=== PATIENT | male | born 1970 | race Caucasian/White ===

== ENCOUNTER 2016-09-08 18:21 | Emergency (ER) | payer OTHER ==
[2016-09-08 18:27] VITALS: BP 121/82; PULSE 105; TEMP 98.2; BMI 23.6
--- NOTE | 2016-09-08 19:43 | PDOC ---
History of Present Illness - General Chief Complaint: Rash Stated Complaint: LEG PAIN Time Seen by Provider: 09/08/16 19:20 History Source: Patient Exam Limitations: No Limitations - History of Present Illness Initial Comments: 09/08/16 19:37 My chief complaint: Blister and redness behind right knee History of present illness: Patient is a 46-year-old male with a history of chronic lower back pain here today to have area behind his right knee checked. Patient reports that the 2 days ago he was wearing a knee brace that was rubbing against the back of his right knee and created a blister. Patient has redness surrounding the blister and his mother thought he should come in to have it checked out to see if it was infectious. Patient denies any pain to the area. Patient denies any fever. Patient reports that the redness is not worse around blister. Is up-to-date with tetanus. Timing/Duration: changing over time Severity: mild Associated Symptoms: reports: denies symptoms Past History - Past Medical History Allergies/Adverse Reactions: Allergies Allergy/AdvReac Type Severity Reaction Status Date / Time cephalexin monohydrate Allergy Verified 09/08/16 18:24 [From [employer]] Home Medications: Ambulatory Orders Azithromycin [Zithromax Z-KARENA (5 DAYS) -] 250 mg PO ASDIR #6 tablet 06/02/13 Ondansetron [Zofran -] 4 mg PO BID PRN #10 tablet 06/02/13 Oseltamivir Phosphate [Tamiflu] 75 mg PO BID #10 capsule 06/02/13 Oxycodone HCl/Acetaminophen [Percocet 5-325 mg Tablet -] 1 tab PO Q4H PRN Psychiatric Problems: Yes (anxiety, insomnia) Other medical history: back pain - Psycho/Social/Smoking Cessation Hx Anxiety: No Suicidal Ideation: No Smoking History: Current every day smoker Have you smoked in the past 12 months: Yes Number of Cigarettes Smoked Daily: 20 Information on smoking cessation initiated: Yes 'Breaking Loose' booklet given: 09/08/16 Hx Alcohol Use: No Drug/Substance Use Hx: No Substance Use Type: None Review of Systems - Review of Systems Able to Perform ROS?: Yes Constitutional: No: Symptoms Reported HEENTM: No: Symptoms Reported Respiratory: No: Symptoms reported Cardiac (ROS): No: Symptoms Reported ABD/GI: No: Symptoms Reported : No: Symptoms Reported Musculoskeletal: No: Symptoms Reported Integumentary: Yes: Erythema (posterior rt. knee with broken blister dime size) Neurological: No: Symptoms reported *Physical Exam - Vital Signs Last Vital Signs Temp Pulse Resp BP Pulse Ox 98.2 F 105 H 18 121/82 100 09/08/16 18:25 09/08/16 18:25 09/08/16 18:25 09/08/16 18:25 09/08/16 18:25 - Physical Exam General Appearance: Yes: Appropriately Dressed Vascular Pulses: Dorsalis-Pedis (R): 4+ Integumentary: positive: Erythema (approx 6 cm x 5 cm area of erythema posterior rt. knee with broken blister in center dime size no tenderness ) Neurologic: positive: Alert, Normal Response, Respond to painful stimul (rt.leg) . negative: Numbness, Sensory Deficit (rt. leg) Procedures - Consent Consent obtained: Verbal, From Patient - Additional Procedures Progress: 09/08/16 19:47 Blister behind right knee cleansed with Betadine and normal saline 0.9%. Dried and bacitracin ointment applied Telfa and Tricia Medical Decision Making - Medical Decision Making 09/08/16 19:39 Patient is a 46-year-old male with a history of chronic lower back pain here today to have area behind his right knee checked. Patient reports that the 2 days ago he was wearing a knee brace that was rubbing against the back of his right knee and created a blister. Patient has redness surrounding the blister and his mother thought he should come in to have it checked out to see if it was infectious. Patient denies any fever. Patient reports that tetanus is up-to- date. blister and skin irritation behind rt. knee PLAN: surrounding skin cleansed with Betadine and normal saline 0.9% dried and tiny amount of bacitracin ointment applied with Telfa and Tricia Area does not look infectious more of an irritation with broken blister dime size *DC/Admit/Observation/Transfer Diagnosis at time of Disposition: Skin irritation, Blister - Discharge Dispostion Disposition: HOME Condition at time of disposition: Stable - Patient Instructions Additional Instructions: Cleanse area involved with antibacterial soap and water pat dry and apply a tiny amount of bacitracin ointment twice daily until healed Avoid wearing a knee brace Return to emergency room if any increase in redness of area or fever Follow-up with primary care provider within the next few days Patient voiced understanding of discharge instructions and all questions were answered
== END 2016-09-08 19:53 | disposition home or self-care (01) ==
LOC: JERFT 18:21
DX: S80.221A Blister (nonthermal), right knee, initial encounter (principal)
CPT/HCPCS: 99281-25

== ENCOUNTER 2018-07-26 08:45 | Inpatient (IN) | payer OTHER ==
[2018-07-26 09:12] VITALS: BMI 27.8
--- NOTE | 2018-07-26 10:21 | HP ---
COWS - Scale Resting Pulse: 0= [place] 80 or Below Sweatin= No chills or Flushing Restless Observation: 1= Difficult to Sit Still Pupil Size: 0= Normal to Room Light Bone or Joint Aches: 0= None Runny Nose/ Eye Tearin= Runny Nose/Eyes GI Upset > 30mins: 1= Stomach Cramp Tremor Observation: 1= Tremor [place], Not Seen Yawning Observation: 0= None Anxiety or Irritability: 2=Irritable/Anxious Goose Flesh Skin: 0=Smooth Skin COWS Score: 7 CIWA Score Nausea/Vomitin-No Nausea/No Vomiting Muscle Tremors: 1-None Visible, but [place] Anxiety: 4-Mod. Anxious/Guarded Agitation: 0-Normal Activity Paroxysmal Sweats: No Perspiration Orientation: 0-Oriented Tacttile Disturbances: 0-None Auditory Disturbances: 2-Mild Harshness/Frighten Visual Disturbances: 2-Mild Sensitivity Headache: 2-Mild CIWA-Ar Total Score: 11 - Admission Criteria [facility] Guidelines: Admission for Medically Managed Detox: Requires at least one of the followin. CIWA greater than 12 2. Seizures within the past 24 hours 3. Delirium tremens within the past 24 hours 4. Hallucinations within the past 24 hours 5. Acute intervention needed for co occurring medical disorder 6. Acute intervention needed for co occurring psychiatric disorder 7. Severe withdrawal that cannot be handled at a lower level of care (continued vomiting, continued diarrhea, abnormal vital signs) requiring intravenous medication and/or fluids 8. Admission ROS [facility] Allergies/Adverse Reactions: Allergies Allergy/AdvReac Type Severity Reaction Status Date / Time cephalexin monohydrate Allergy Verified 07/26/18 09:12 [From [employer]] History of Present Illness: pt here requesting detox from oxycodone use , reports 5 x 30 mg oxycodone daily x several years , used to have rx approx 8 years ago 2/2 LBP , then had rx for xanax for insomnia , lost job 8 months ago 2/2 work conflict , with decreased finances current use is average 3-4 oxycodoen / day , latest use last [place] , current symptoms as above , anticipating w/d symptoms worsening in the next couple of hours. Denies heroin use , did not go to outpt program, this is the pt's first tx episode . xanax : 2-3 mg/day , latest use yesterday [place] , + w/d symptoms " it felt like something but it never happened " tobacco : 1 .5 ppd x 12 years cannabis- occasional denies etoh PMHX : denies PSHx : tonsillectomy Psych : depression denies current SI / Hi meds - denies SHX : lives alone , denies legal issues , unemployed Exam Limitations: No Limitations - Ebola screening Have you traveled outside of the country in the last 21 days: No Have you had contact with anyone from an Ebola affected area: No Do you have a fever: No - Review of Systems Constitutional: See HPI EENT: reports: See HPI Respiratory: reports: No Symptoms reported Cardiac: reports: No Symptoms Reported GI: reports: See HPI : reports: No Symptoms Reported Musculoskeletal: reports: No Symptoms Reported Integumentary: reports: No Symptoms Reported Neuro: reports: See HPI Endocrine: reports: No Symptoms Reported Psychiatric: reports: Orientated x3, Anxious Patient History - Smoking Cessation Smoking history: Current every day smoker Have you smoked in the past 12 months: Yes Aproximately how many cigarettes per day: 20 Initiated information on smoking cessation: No - Substances abused Alprazolam (Xanax) Substance route: Oral Frequency: 3-6 times per week Amount used: 4MG Age of first use: 44 Date of last use: 07/25/18 Diazepam Substance route: Oral Frequency: 1-3 times last 30 days Amount used: 10MG Age of first use: 44 Date of last use: 07/05/18 Oxycontin Substance route: Oral Frequency: Daily Amount used: 5- 30MG PILLS Age of first use: 39 Date of last use: 07/25/18 Family Disease History - Family Disease History Family Disease History: Heart Disease: Mother, Other: Father (A & W anish TKR ) Other Family History: adult children Admission Physical Exam [facility] - Vital Signs Vital Signs: Vital Signs - 24 hr 07/26/18 07/26/18 09:01 09:36 Temperature 97.9 F 97.9 F Pulse Rate 72 72 Respiratory 18 18 Rate Blood Pressure 138/87 138/87 - Physical General Appearance: Yes: Mild Distress, Anxious HEENTM: Yes: EOMI, Hearing grossly Normal, Normocephalic, Normal Voice, Nasal Congestion, Other (pupils > nl) Respiratory: Yes: Chest Non-Tender, Lungs Clear, Normal Breath Sounds Neck: Yes: No masses,lesions,Nodules, Trachea in good position Cardiology: Yes: Regular Rhythm, Regular Rate, S1, S2 Abdominal: Yes: Non Tender, Soft Back: Yes: Normal Inspection Musculoskeletal: Yes: Gait Steady Extremities: Yes: Normal Range of Motion, Non-Tender, Tremors Neurological: Yes: Fully Oriented, Alert, Motor Strength 5/5 Integumentary: Yes: Warm - Diagnostic (1) Opioid dependence Current Visit: Yes Status: Acute Qualifiers: Substance use status: in withdrawal Qualified Code(s): F11.23 - Opioid dependence with withdrawal (2) Sedative, hypnotic or anxiolytic abuse Current Visit: Yes Status: Acute (3) Nicotine dependence Current Visit: Yes Status: Chronic Qualifiers: Nicotine product type: cigarettes Breathalyzer - Breathalyzer Breathalyzer: 0 Urine Drug Screen - Test Device Lot number: [id number] Expiration date: 04/18/20 - Control Is test valid?: Yes - Results Drug screen NEGATIVE: No Urine drug screen results: OXY-Oxycodone, BZO-Benzodiazepines Inpatient Rehab Admission - Rehab Decision to Admit Inpatient rehab admission?: No
[2018-07-26] MEDS ORDERED: DICYCLOMINE HCL 10 MG CAPSULE PO PRN (10:28)
[2018-07-26] MEDS ORDERED: MENTHOL/PHENOL 1 EACH UD MM PRN (10:28)
[2018-07-26] MEDS ORDERED: MAGNESIUM CITRATE 300 ML BOTTLE PO PRN (10:28)
[2018-07-26] MEDS ORDERED: METHOCARBAMOL 500 MG TABLET PO PRN (10:28)
[2018-07-26] MEDS ORDERED: MAGNESIUM HYDROX 2400MG/30ML ORAL SUSPENSION 30 ML CUP PO PRN (10:28)
[2018-07-26] MEDS ORDERED: ACETAMINOPHEN 325 MG TABLET (FP) PO PRN ×2 (10:28)
[2018-07-26] MEDS ORDERED: chlordiazePOXIDE HCL 25 MG CAPSULE PO PRN (10:28)
[2018-07-26] MEDS ORDERED: MAG HYDROX/AL HYDROX/SIMETH 30 ML UNIT-DOSE CUP PO PRN (10:28)
[2018-07-26] MEDS ORDERED: IBUPROFEN 400 MG TABLET (FP) PO PRN (10:28)
[2018-07-26] MEDS: chlordiazePOXIDE HCL 25 MG CAPSULE PO SCH ×3 (11:46→22:33)
[2018-07-26] MEDS: NICOTINE POLACRILEX 2 MG GUM BUC PRN ×3 (13:54→22:54)
--- NOTE | 2018-07-26 14:49 | EKG ---
Test Reason : Blood Pressure : / mmHG Vent. Rate : 076 BPM Atrial Rate : 076 BPM P-R Int : 148 ms QRS Dur : 086 ms QT Int : 384 ms P-R-T Axes : 058 006 030 degrees QTc Int : 432 ms NORMAL SINUS RHYTHM NO PREVIOUS ECGS AVAILABLE Confirmed by JOSY HENDERSON MD ([id number]) on 07/26/2018 2:49:40 PM Referred By: Confirmed By:JOSY HENDERSON MD
[2018-07-26 17:05] LABS: HEMATOCRIT 47.5 % (35.4-49); HEMOGLOBIN 15.6 GM/dL (11.7-16.9); MCH 32.8 pg (25.7-33.7); MCHC 32.7 g/dl (32.0-35.9); MEAN CELL VOLUME 100.4 fl (80-96); MEAN PLT VOLUME 7.3 fl (7.5-11.1); PLATELET COUNT 374 K/MM3 (134-434); RBC 4.74 M/mm3 (4.00-5.60); RDW 14.3 % (11.9-15.9); WHITE BLOOD COUNT 8.8 K/mm3 (4.0-10.0)
[2018-07-26 17:12] LABS: ALBUMIN 4.4 g/dl (3.4-5.0); BILIRUBIN,TOTAL 0.3 mg/dL (0.2-1); CALCIUM 9.2 mg/dL (8.5-10.1); POTASSIUM 4.7 mmol/L (3.5-5.1); TOT PROT 7.8 g/dl (6.4-8.2)
[2018-07-26] MEDS: MELATONIN 5 MG TABLETS PO PRN (22:33)
[2018-07-26] MEDS ORDERED: METHADONE HCL 10 MG TABLET (FOR DETOX USE ONLY) PO ONE (23:00)
[2018-07-26] MEDS: THIAMINE HCL 100 MG TABLET (FP) PO SCH (23:57)
[2018-07-27] MEDS: chlordiazePOXIDE HCL 25 MG CAPSULE PO SCH ×4 (06:04→22:24)
[2018-07-27] MEDS: NICOTINE POLACRILEX 2 MG GUM BUC PRN ×4 (06:59→19:42)
[2018-07-27] MEDS ORDERED: METHADONE HCL 5 MG TABLET (FOR DETOX USE ONLY) PO ONE (10:00)
[2018-07-27] MEDS: PRENATAL VITAMINS W/ FOLIC ACID TABLET (FP) PO SCH (10:26)
--- NOTE | 2018-07-27 11:01 | PN ---
[facility] CIWA - CIWA Score Nausea/Vomitin-No Nausea/No Vomiting Muscle Tremors: 1-None Visible, but [place] Anxiety: 1-Mildly Anxious Agitation: 1-Slight > Activity Paroxysmal Sweats: 3 Orientation: 0-Oriented Tacttile Disturbances: 0-None Auditory Disturbances: 0-None Visual Disturbances: 0-None Headache: 2-Mild CIWA-Ar Total Score: 8 S COWS - Scale Resting Pulse: 0= [place] 80 or Below Sweatin= Beads of Sweat on Face Restless Observation: 1= Difficult to Sit Still Pupil Size: 0= Normal to Room Light Bone or Joint Aches: 1= Mild Discomfort Runny Nose/ Eye Tearin= None GI Upset > 30mins: 0= None Tremor Observation of Outstretched Hands: 2= Slight Tremor Visible Yawning Observation: 1= 1-2x During Session Anxiety or Irritability: 2=Irritable/Anxious Goose Flesh Skin: 0=Smooth Skin COWS Score: 10 [facility] Progress Note (SOAP) Subjective: c/o sweats, interrupted sleep, mild headache, and anxiety. Objective: 07/27/18 10:59 Vital Signs 07/27/18 07/27/18 07/27/18 03:30 08:02 09:52 Temperature 97.3 F L 98.1 F Pulse Rate 86 76 Respiratory 18 18 18 Rate Blood Pressure 116/43 L 110/60 Assessment: 07/27/18 10:59 AOX3, in no respiratory distress, Full ROM, ambulating in the unit Plan: continue detox.
[2018-07-27] MEDS: THIAMINE HCL 100 MG TABLET (FP) PO SCH (22:24)
[2018-07-27] MEDS: MELATONIN 5 MG TABLETS PO PRN (22:24)
[2018-07-28] MEDS: chlordiazePOXIDE HCL 25 MG CAPSULE PO SCH (05:53)
[2018-07-28] MEDS ORDERED: METHADONE HCL 10 MG TABLET (FOR DETOX USE ONLY) PO ONE (10:00)
[2018-07-28] MEDS: PRENATAL VITAMINS W/ FOLIC ACID TABLET (FP) PO SCH (10:13)
[2018-07-28] MEDS: chlordiazePOXIDE HCL 10 MG CAPSULE PO SCH ×3 (10:13→22:25)
[2018-07-28] MEDS ORDERED: chlordiazePOXIDE HCL 10 MG CAPSULE PO PRN (11:00)
[2018-07-28] MEDS: NICOTINE POLACRILEX 2 MG GUM BUC PRN ×2 (13:16→21:31)
[2018-07-28] MEDS ORDERED: cloNIDine HCL 0.1 MG TABLET PO PRN (15:59)
--- NOTE | 2018-07-28 15:59 | PN ---
S CIWA - CIWA Score Nausea/Vomitin-Mild Nausea/No Vomiting Muscle Tremors: 3 Anxiety: 3 Agitation: 3 Paroxysmal Sweats: 3 Orientation: 0-Oriented Tacttile Disturbances: 0-None Auditory Disturbances: 0-None Visual Disturbances: 0-None Headache: 0-None Present CIWA-Ar Total Score: 13 [facility] COWS - Scale Resting Pulse: 1= [place] 81-100 Sweatin= Chills/Flushing Restless Observation: 1= Difficult to Sit Still Pupil Size: 0= Normal to Room Light Bone or Joint Aches: 2= Severe Diffuse Aches Runny Nose/ Eye Tearin= Runny Nose/Eyes GI Upset > 30mins: 2= Nausea/Diarrhea Tremor Observation of Outstretched Hands: 2= Slight Tremor Visible Yawning Observation: 0= None Anxiety or Irritability: 2=Irritable/Anxious Goose Flesh Skin: 0=Smooth Skin COWS Score: 13 [facility] Progress Note (SOAP) Subjective: Denies any complaints presently. Patient is anxious. Objective: 07/28/18 15:57 Last Vital Signs Temp Pulse Resp BP Pulse Ox 97.9 F 94 H 16 142/90 07/28/18 14:04 07/28/18 14:04 07/28/18 14:04 07/28/18 14:04 Elevated b/p noted: 142/90 (denies HTN) Laboratory Tests 07/26/18 07/26/18 07/26/18 11:15 11:15 11:15 WBC 8.8 RBC 4.74 Hgb 15.6 Hct 47.5 MCV 100.4 H MCH 32.8 MCHC 32.7 RDW 14.3 Plt Count 374 D MPV 7.3 L Sodium 140 Potassium 4.7 Chloride 104 Carbon Dioxide 30 Anion Gap 6 L BUN 14 Creatinine 1.0 Est GFR (CKD-EPI)AfAm 101.98 Est GFR (CKD-EPI)NonAf 87.99 Random Glucose 87 Calcium 9.2 Total Bilirubin 0.3 AST 14 L ALT 27 Alkaline Phosphatase 82 Total Protein 7.8 Albumin 4.4 RPR Titer Nonreactive Labs reviewed Assessment: 07/28/18 16:01 Withdrawal symptoms Noted with elevated b/p Plan: Continue detox Encouraged PO water hydration Elevated b/p without dx of HTN: clonidine 0.1mg PO q8hr prn if b/p > 140/90
[2018-07-28] MEDS: MELATONIN 5 MG TABLETS PO PRN (22:25)
[2018-07-28] MEDS: THIAMINE HCL 100 MG TABLET (FP) PO SCH (22:25)
[2018-07-29] MEDS ORDERED: METHADONE HCL 5 MG TABLET (FOR DETOX USE ONLY) PO ONE (06:00)
[2018-07-29] MEDS: chlordiazePOXIDE HCL 10 MG CAPSULE PO SCH (06:41)
[2018-07-29 09:05] VITALS: BP 142/81; PULSE 86; TEMP 97.7
[2018-07-29] MEDS ORDERED: chlordiazePOXIDE HCL 10 MG CAPSULE PO SCH (11:00)
--- NOTE | 2018-07-29 17:44 | PN ---
[facility] CIWA - CIWA Score Nausea/Vomitin-No Nausea/No Vomiting Muscle Tremors: None Anxiety: 0-No Anxiety, at Ease Agitation: 1-Slight > Activity Paroxysmal Sweats: No Perspiration Orientation: 0-Oriented Tacttile Disturbances: 0-None Auditory Disturbances: 0-None Visual Disturbances: 0-None Headache: 0-None Present CIWA-Ar Total Score: 1 S COWS - Scale Resting Pulse: 1= [place] 81-100 Sweatin= No chills or [place] Restless Observation: 0= Sits Still Pupil Size: 0= Normal to Room Light Bone or Joint Aches: 0= None Runny Nose/ Eye Tearin= None GI Upset > 30mins: 0= None Tremor Observation of Outstretched Hands: 0= None Yawning Observation: 1= 1-2x During Session Anxiety or Irritability: 0= None Goose Flesh Skin: 0=Smooth Skin COWS Score: 2 S Progress Note (SOAP) Subjective: Patient denies current Withdrawal / Detox symptoms and reports that he feels well overall. Objective: PATIENT A & O X 3, OBSERVED AMBULATING ON UNIT UNASSISTED. IN NO ACUTE DISTRESS. 07/29/18 17:42 Vital Signs Temperature 97.7 F 07/29/18 09:04 Pulse Rate 86 07/29/18 09:04 Respiratory Rate 18 07/29/18 09:04 Blood Pressure 142/81 07/29/18 09:04 O2 Sat by Pulse Oximetry (%) Laboratory Tests 07/26/18 07/26/18 07/26/18 11:15 11:15 11:15 WBC 8.8 RBC 4.74 Hgb 15.6 Hct 47.5 MCV 100.4 H MCH 32.8 MCHC 32.7 RDW 14.3 Plt Count 374 D MPV 7.3 L Sodium 140 Potassium 4.7 Chloride 104 Carbon Dioxide 30 Anion Gap 6 L BUN 14 Creatinine 1.0 Est GFR (CKD-EPI)AfAm 101.98 Est GFR (CKD-EPI)NonAf 87.99 Random Glucose 87 Calcium 9.2 Total Bilirubin 0.3 AST 14 L ALT 27 Alkaline Phosphatase 82 Total Protein 7.8 Albumin 4.4 RPR Titer Nonreactive LABS NOTED. Assessment: 07/29/18 17:43 COMPLETION OF DETOX REGIMEN. Plan: PATIENT SCHEDULED FOR DISCHARGE FROM DETOX UNIT TODAY.
--- NOTE | 2018-07-29 17:49 | DS ---
[facility] Detox Discharge Summary Admission Date: 07/26/18 Discharge Date: 07/29/18 - History Present History: Opioid Dependence, Sedative Dependence Additional Comments: PATIENT ELECTING TO RETURN HOME AND TO WORK. PATIENT REFERRED TO [facility] FOR AFTERCARE. PATIENT WAS DISCHARGED FROM DETOX UNIT IN STABLE MEDICAL CONDITION. Pertinent Past History: Depression, Nicotine Dependence. - Physical Exam Results Vital Signs: Vital Signs Temperature 97.7 F 07/29/18 09:04 Pulse Rate 86 07/29/18 09:04 Respiratory Rate 18 07/29/18 09:04 Blood Pressure 142/81 07/29/18 09:04 O2 Sat by Pulse Oximetry (%) Pertinent Admission Physical Exam Findings: WITHDRAWAL SYMPTOMS. Laboratory Tests 07/26/18 07/26/18 07/26/18 11:15 11:15 11:15 WBC 8.8 RBC 4.74 Hgb 15.6 Hct 47.5 MCV 100.4 H MCH 32.8 MCHC 32.7 RDW 14.3 Plt Count 374 D MPV 7.3 L Sodium 140 Potassium 4.7 Chloride 104 Carbon Dioxide 30 Anion Gap 6 L BUN 14 Creatinine 1.0 Est GFR (CKD-EPI)AfAm 101.98 Est GFR (CKD-EPI)NonAf 87.99 Random Glucose 87 Calcium 9.2 Total Bilirubin 0.3 AST 14 L ALT 27 Alkaline Phosphatase 82 Total Protein 7.8 Albumin 4.4 RPR Titer Nonreactive LABS NOTED. - Treatment Hospital Course: Detox Protocol Followed, Detoxed Safely, Responded well, Discharged Condition Good Patient has Accepted a Rehab Referral to: PT. RETURNING HOME AND TO WORK, REFERRED TO [facility]. - Medication Discharge Medications: Ambulatory Orders NK [No Known Home Medication] 07/26/18 - Diagnosis (1) Opioid dependence Status: Acute Qualifiers: Substance use status: in withdrawal Qualified Code(s): F11.23 - Opioid dependence with withdrawal (2) Sedative, hypnotic or anxiolytic abuse Status: Acute (3) Nicotine dependence Status: Chronic Qualifiers: Nicotine product type: cigarettes Substance use status: uncomplicated Qualified Code(s): F17.210 - Nicotine dependence, cigarettes, uncomplicated - AMA Did Patient Leave Against Medical Advice: No
== END 2018-07-29 09:15 | disposition home or self-care (01) | DRG 773 ==
LOC: YASAS 08:45 → Y6N 11:08
PROVIDERS: ADMIT Surgery; ATTEND Surgery
PROC: HZ2ZZZZ Detoxification Services for Substance Abuse Treatment (ICD-10-PCS; principal; 2018-07-26)
DX: F11.23 Opioid dependence with withdrawal (principal); F13.230 Sedative, hypnotic or anxiolytic dependence with withdrawal, uncomplicated; F17.210 Nicotine dependence, cigarettes, uncomplicated; R03.0 Elevated blood-pressure reading, without diagnosis of hypertension
CPT/HCPCS: 36415; 80053; 85027; 86593; 93005; 93010